=== PATIENT | female | born 1995 | race Caucasian/White ===

== ENCOUNTER 2020-07-22 09:21 | Emergency (ER) | payer BC ==
[~2020-07-22] VITALS: Ht 170.2 cm; Wt 59.0 kg
[2020-07-22 09:30] VITALS: BP_SYST 122
[2020-07-22 10:33] VITALS: BP_SYST 124
== END 2020-07-22 10:34 | disposition home or self-care (01) ==
LOC: SED 09:21
DX: T19.2XXA Foreign body in vulva and vagina, initial encounter (principal); X58.XXXA Exposure to other specified factors, initial encounter; Y93.89 Activity, other specified; Y92.89 Other specified places as the place of occurrence of the external cause; Y99.8 Other external cause status
CPT/HCPCS: 99284

== ENCOUNTER 2021-01-03 20:37 | Emergency (ER) | payer BC ==
[~2021-01-03] VITALS: Ht 170.2 cm; Wt 59.0 kg
[2021-01-03 20:53] VITALS: BP_SYST 144
--- NOTE | 2021-01-03 20:56 | NUR ---
Patient triaged and placed in waiting room. VSS and patient appears in no acute distress at this time. Accompanied by self, awaiting available bed, and MD notified of need for MSE.
--- NOTE | 2021-01-03 22:24 | NUR ---
DR. COSTELLO AT BEDSIDE FOR EVALUATION.
--- NOTE | 2021-01-03 22:41 | NUR ---
PT BIB FAMILY TO ED C/O BUMP BEHIND RT KNEE X 4 DAYS. STATES PAIN RADIATES DOWN TO HER TOES VSS NO S/S OF ACUTE DISTRESS RESTING ON GURNEY RAILS UP
[2021-01-03] MEDS ORDERED: IBUPROFEN 800 MG TABLET PO ONE (22:45)
[2021-01-03 23:55] VITALS: BP_SYST 144
--- NOTE | 2021-01-03 23:56 | NUR ---
Patient given written and verbal discharge instructions and verbalizes understanding. DR. TRANG RACHEL MD discussed with patient the results and treatment provided. Patient in stable condition. ID arm band removed. Patient educated on pain management and to follow up with PMD. Pain Scale 0/10. Opportunity for questions provided and answered. Medication side effect fact sheet provided.
== END 2021-01-03 23:56 | disposition home or self-care (01) ==
LOC: SED 20:37
DX: M25.561 Pain in right knee (principal)
CPT/HCPCS: 99284